=== PATIENT | female | born 1980 | race Two or more races ===

== ENCOUNTER 2024-06-03 11:24 | Emergency (ER) | payer OTHER ==
[~2024-06-03] VITALS: Ht 165.1 cm; Wt 56.7 kg
[2024-06-03 11:26] VITALS: TEMP 98
[2024-06-03] MEDS: HYDROcodone/APAP 5/325 1 TAB TABLET PO ONE (12:17)
--- NOTE | 2024-06-03 12:51 | HMCIMG ---
RIGHT ANKLE RADIOGRAPHS - 3 VIEWS INDICATION: Pain COMPARISON: None FINDINGS: AP, lateral, and oblique views. Moderate lateral right ankle soft tissue swelling. No acute fracture or subluxation identified. The talar dome is intact. Ankle mortise and tibial plafond are well maintained. No significant joint effusion is present. No radiopaque foreign body noted. IMPRESSION: No evidence for fracture or dislocation.
--- NOTE | 2024-06-03 12:52 | HMCIMG ---
LEFT ANKLE RADIOGRAPHS - 3 VIEWS INDICATION: Pain COMPARISON: None FINDINGS: AP, lateral, and oblique views. Nondisplaced slightly comminuted fracture through the proximal metaphysis of the second through fourth metatarsal bones. The talar dome is intact. Ankle mortise and tibial plafond are well maintained. No significant joint effusion is present. No radiopaque foreign body noted. IMPRESSION: Nondisplaced slightly comminuted fracture through the proximal metaphysis of the second through fourth metatarsal bones.
--- NOTE | 2024-06-03 12:52 | HMCIMG ---
LEFT FOOT RADIOGRAPHS - 3 VIEWS INDICATION: Pain COMPARISON: None FINDINGS: AP, lateral, and oblique views. Nondisplaced slightly comminuted fracture through the proximal metaphysis of the second through fourth metatarsal bones. Midfoot alignment is well maintained. No radiopaque foreign body noted. IMPRESSION: Nondisplaced slightly comminuted fracture through the proximal metaphysis of the second through fourth metatarsal bones.
--- NOTE | 2024-06-03 13:22 | ERN ---
ED Note History of Present Illness Stated Complaint: FALL Chief Complaint: Mechanical Fall Time Seen by MD: 11:26 Time Seen by Midlevel: 11:26 Dictation: The patient is a 43-year-old female with a history of diabetes who presents to the emergency department with complaints of bilateral ankle pain and left foot pain after she accidentally missed a step and fell onset prior to arrival. Patient reports that he only fell one step. Denies any head trauma, neck pain, back pain, any other injuries. Allergies: Coded Allergies: No Known Drug Allergies (Unverified Allergy, Unknown, 06/03/24) Past Medical History Past Medical History: Diabetes-Type II, High Cholesterol Surgical History: None RN Note Reviewed/Agreed w/PFSH: Yes Review of System Dictation Constitutional: Negative for fever,chills, and weight loss Eyes: Negative for injury, pain,redness, and discharge ENT: Negative for injury,pain or swelling Cardiovascular: Negative for chest pain, palpitations, and edema Respiratory: Negative for shortness of breath, cough, and wheezing, Abdomen/GI: Negative for abdominal pain, nausea, vomiting, diarrhea, and constipation Back: Negative for injury and pain : Negative for injury, bleeding and discharge MS/Extremity: Positive for bilateral ankle pain, left foot pain Skin: Negative for rash, and discoloration Neuro: Negative for headache, weakness, numbness, tingling, and seizure Psych: Negative for suicide ideation, homicidal ideation, and hallucinations Initial Vital Sign VS Vital Signs Date Time Temp Pulse Resp B/P (MAP) Pulse Ox O2 Delivery O2 Flow Rate FiO2 06/03/24 11:26 98.1 71 15 108/73 100 Room Air 0 06/03/24 12:07 21 Physical Exam Dictation Vital Signs reviewed General Appearance: Alert, oriented x 3, no acute distress, well developed, nourished. Head and Face: non-traumatic. Eyes: PERRL, pink conjunctivas, eyelid no trauma, anterior chamber with arcus senilis. Ears: Pinnas intact and no signs of trauma or erythema ear canals clear and no discharge TM no erythema Nose: No discharge, no bleeding. Oropharynx: Mouth normal, tongue pink. pharynx clear,no erythema, tonsils no exudates, no abscesses noted, mucous membrane moist Neck: Supple, non-tender, no thyromegaly, no masses, no JVD, no bruits Breast:Deferred Chest:No tenderness, no crepitus, no paradoxical movement, no retractions Lungs:Clear, well-ventilated, symmetric, no rales, no wheezing, no rhonchi, no stridor, good breath sounds bilaterally Heart: Regular rate, regular rhythm, no murmur, no gallops Vascular: no peripheral edema, dorsalis pedis 3+ bilaterally, cap refills less than two seconds Abdomen: Soft, positive bowel sounds, nondistended, no guarding, nontender, no rebound, no masses no hepatomegaly, no splenomegaly, no Guerrier's sign, no hernias. Rectal: Deferred Genital: Deferred Neurological: Normal speech, motor function intact, sensory function intact Musculoskeletal: Neck nontender, full range of motion, back nontender, full range of motion, Extremities: nontender, full range of motion mild amount of swelling to right ankle, no swelling to left ankle no open wounds Skin: Color pink, dry, no turgor, no rash, no lacerations, no abrasions, no contusions. Lymphatic: Deferred Results (Laboratory/Radiology) Laboratory/Radiology REASON: fall ORDERING PHYSICIAN: JAREK BRAXTON [employer] PROCEDURE: FT 3VW LT - FOOT COMP 3+VWS LT LEFT FOOT RADIOGRAPHS - 3 VIEWS INDICATION: Pain COMPARISON: None FINDINGS: AP, lateral, and oblique views. Nondisplaced slightly comminuted fracture through the proximal metaphysis of the second through fourth metatarsal bones. Midfoot alignment is well maintained. No radiopaque foreign body noted. IMPRESSION: Nondisplaced slightly comminuted fracture through the proximal metaphysis of the second through fourth metatarsal bones. REASON: fall ORDERING PHYSICIAN: JAREK BRAXTON [employer] PROCEDURE: [id number] - ANKLE COMP 3VWS RT RIGHT ANKLE RADIOGRAPHS - 3 VIEWS INDICATION: Pain COMPARISON: None FINDINGS: AP, lateral, and oblique views. Moderate lateral right ankle soft tissue swelling. No acute fracture or subluxation identified. The talar dome is intact. Ankle mortise and tibial plafond are well maintained. No significant joint effusion is present. No radiopaque foreign body noted. IMPRESSION: No evidence for fracture or dislocation. REASON: fall ORDERING PHYSICIAN: JAREK BRAXTON [employer] PROCEDURE: [id number] - ANKLE COMP 3VWS LT LEFT ANKLE RADIOGRAPHS - 3 VIEWS INDICATION: Pain COMPARISON: None FINDINGS: AP, lateral, and oblique views. Nondisplaced slightly comminuted fracture through the proximal metaphysis of the second through fourth metatarsal bones. The talar dome is intact. Ankle mortise and tibial plafond are well maintained. No significant joint effusion is present. No radiopaque foreign body noted. IMPRESSION: Nondisplaced slightly comminuted fracture through the proximal metaphysis of the second through fourth metatarsal bones. Labs Reviewed?: Yes ED Course ED Course Orders Procedure Category Date Status Time Ankle Comp 3vws Lt RAD 06/03/24 Resulted 11:36 Ankle Comp 3vws Rt RAD 06/03/24 Resulted 11:36 Foot Comp 3+Vws Lt RAD 06/03/24 Resulted 11:36 Hydrocodone/Apap PHA 06/03/24 Complete 5/325 (Kenefic 5/325mg) 12:00 Crutches W/Training CPOE 06/03/24 Transmitted (Er) 13:11 Ortho Shoe BETITO 06/03/24 Transmitted 13:11 Current Medications Medications (Trade) Dose Ordered Sig/Buffy Route PRN Reason Start Time Stop Time Status Last Admin Dose Admin Acetaminophen/ Hydrocodone Bitart (NORco 5/325MG) 1 tab ONCE ONCE PO 06/03/24 12:00 06/03/24 12:01 DC 06/03/24 12:17 Vital Signs Date Time Temp Pulse Resp B/P (MAP) Pulse Ox O2 Delivery O2 Flow Rate FiO2 06/03/24 12:07 65 16 108/68 100 Room Air* 0 21 06/03/24 11:26 98.1 71 15 108/73 100 Room Air 0 Medical Decision Making MDM The patient is a 43-year-old female with a history of diabetes who presents to the emergency department with complaints of bilateral ankle pain and left foot pain after she accidentally missed a step and fell onset prior to arrival. Patient reports that he only fell one step. Denies any head trauma, neck pain, back pain, any other injuries. No evidence of fractures noted to bilateral ankle, nondisplaced slightly comminuted fractured through proximal metaphysis of the 2nd through 4th metatarsal bone. Patient will be placed on ortho boot and instructed to follow up with the orthopedic. Patient neurovascularly intact. No acute distress. Differential diagnosis: Ankle sprain, ankle fracture, function Need for hospitalization: Patient does not meet criteria for hospitalization. There are no social concerns with this patient. DX & DISP Disposition: Discharge Departure Impression: Primary Impression: Fracture of metatarsal bone of left foot Additional Impressions: Fall, Ankle sprain Condition: Stable Additional Instructions: Please follow up with your primary doctor in 1-2 days. If symptoms worsen please return to ER. FOLLOW-UP WITH PRIMARY CARE PROVIDER IN 1 TO 2 DAYS. TAKE MEDICATIONS DIRECTED HERE IN THE EMERGENCY ROOM. OKAY TO CONTINUE HOME MEDICATIONS UNLESS OTHERWISE DISCUSSED DURING YOUR VISIT IN THE EMERGENCY ROOM TODAY. RETURN TO YOUR NEAREST EMERGENCY ROOM IF SYMPTOMS WORSEN OR IF THERE IS NO IMPROVEMENT. CALL 911 IF YOU NEED IMMEDIATE ASSISTANCE. TAKE TYLENOL OR MOTRIN [id number] NEEDED AND IF NO CONTRAINDICATIONS ARE PRESENT. INCREASE ORAL HYDRATION. A WOUND CULTURE OR URINE CULTURE WAS ORDERED HERE IN THE EMERGENCY ROOM DEPARTMENT PLEASE FOLLOW-UP WITH PRIMARY CARE PROVIDER AND ADVISE THEM TO GET REPEAT PORTS FROM OUR FACILITY. IF YOU HAD ANY AP WRAP/SPLINTS THAT WERE APPLIED HERE, PLEASE DO NOT REMOVE THEM UNTIL YOU SEE YOUR PRIMARY CARE OR SPECIALTY. Referrals: SELF,REFERRAL (PCP) CLAUDIA MANZANO MD Time of Disposition: 13:19 I have reviewed the case, and I agree with, Diagnosis and Plan JAREK BRAXTON [employer] Jun 03, 2024 13:22
[2024-06-03 13:47] VITALS: BP 118/65; PULSE 74; RESP 18; O2SAT 98
== END 2024-06-03 13:48 | disposition home or self-care (01) ==
LOC: EDH 11:24
DX: S92.325A Nondisplaced fracture of second metatarsal bone, left foot, initial encounter for closed fracture (principal); S92.345A Nondisplaced fracture of fourth metatarsal bone, left foot, initial encounter for closed fracture; S93.492A Sprain of other ligament of left ankle, initial encounter; E11.9 Type 2 diabetes mellitus without complications; E78.00 Pure hypercholesterolemia, unspecified; W18.39XA Other fall on same level, initial encounter; Y93.01 Activity, walking, marching and hiking; Y92.89 Other specified places as the place of occurrence of the external cause; Y99.8 Other external cause status
CPT/HCPCS: 73610; 73630; 99284